=== PATIENT | male | born 2000 | race Hispanic/Latino ===

== ENCOUNTER 2021-05-03 14:26 | Emergency (ER) | payer OTHER ==
[2021-05-03] MEDS ORDERED: TETANUS & DIPHTHERIA TOX,ADULT 0.5 ML VIAL ONE (15:09)
[2021-05-03] MEDS ORDERED: IBUPROFEN 200 MG TAB PO ONE (15:11)
[2021-05-03] MEDS ORDERED: BUPIVACAINE 0.5% PF 10 ML VIAL ONE (15:15)
[2021-05-03] MEDS ORDERED: LIDOCAINE 1% MPF 5 ML VIAL ONE (15:15)
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
[2021-05-03] MEDS ORDERED: CEFAZOLIN SODIUM 1 GM/VIAL ONE (16:13)
[2021-05-03] MEDS ORDERED: WATER FOR INJ,STERILE 10 ML ONE (16:27)
[2021-05-03] MEDS ORDERED: HYDROCODONE/APAP 10/325 TAB ONE (16:38)
[2021-05-03 18:50] VITALS: TEMP 98
[2021-05-03 18:53] VITALS: BP 135/88; O2SAT 98
== END 2021-05-03 18:04 | disposition home or self-care (01) ==
LOC: ER 14:26
DX: T23.141A Burn of first degree of multiple right fingers (nail), including thumb, initial encounter (principal); X08.8XXA Exposure to other specified smoke, fire and flames, initial encounter; W40.8XXA Explosion of other specified explosive materials, initial encounter; Y93.89 Activity, other specified; Z23 Encounter for immunization; F17.210 Nicotine dependence, cigarettes, uncomplicated
CPT/HCPCS: 90471; 90714; 96372; 99283; J0690